=== PATIENT | female | born 1955 | race Caucasian/White ===

== ENCOUNTER → 2018-04-23 | Outpatient (CLI) | payer OTHER | LOC: CIMAGING 12:17 | PROVIDERS: ATTEND Physical Medicine & Rehabilitation | DX: M25.811 Other specified joint disorders, right shoulder (principal) | CPT/HCPCS: 73030-PO ==

== ENCOUNTER → 2019-04-23 | Outpatient (CLI) | payer OTHER | LOC: FIMAGING 09:09 ==